=== PATIENT | female | born 1985 | race African-American/Black ===

== ENCOUNTER 2019-11-08 08:00 | Inpatient (IN) | payer OTHER ==
[2019-11-08] MEDS ORDERED: AMPICILLIN SODIUM 2 GM VIAL ONE (09:00)
[2019-11-08] MEDS ORDERED: SODIUM CHLORIDE 100 ML IVPB ONE ×2 (09:00→12:51)
[2019-11-08] MEDS: ELECTROLYTE-148 SOLN 1,000 ML IV SCH ×2 (09:15→11:00)
--- NOTE | 2019-11-08 09:39 | HP ---
Past Medical History - Primary Care Physician PCP:: Moris Hester - Admission Chief Complaint: PROM at term. Some ctx History of Present Illness: Uneventful second . GBS pos. History Source: Patient, Medical Record, Caregiver Limitations to Obtaining History: No Limitations - Past Medical History MANAGER OF BROADCAST CONTENT: No: Alzheimer's, CVA, Dementia, Migraine, Multiple Sclerosis, Peripheral Neuropathy, Parkinson's, Seizure, Syncope, TIA, Vertigo, Other Cardiovascular: No: AFIB, Aneurysm, Aortic Insufficiency, Aortic Stenosis, CAD, CHF, Deep Vein Thrombosis, HTN, Hyperlipdemia, NC, Mitral Insufficiency, Mitral Stenosis, Murmur, Pulmonary Hypertension, Other Pulmonary: No: Asthma, Bronchitis, Cancer, COPD, O2 Dependent, Pneumonia, Previously Intubated, Pulmonary Embolus, Pulmonary Fibrosis, Sleep Apnea, Other Gastrointestinal: No: Ascites, Cancer, Constipation, Crohn's Disease, Diverticulitis, Diverticulosis, Esophageal Varices, Gastritis, GERD, GI Bleed, Hemorrhoids, Hiatal Hernia, Inflamatory Bowel Disease, Irritable Bowel Disease, Pancreatitis, Peptic Ulcer Disease, Ulcerative Colitis, Other Hepatobiliary: No: Cirrhosis, Cholelithiasis, Cholecystitis, Choledocholithiasis, Hepatitis A, Hepatitis B, Hepatitis C, Other Renal/: No: Renal Failure, Renal Inusuff, BPH, Cancer, Hematuria, Hemodialysis, Neurogenic Bladder, Renal Calculi, UTI, Other Reproductive: No: Ectopic , Endometriosis, Fibroids, PID, Polycystic Ovary Syndrome, Postmenopausal, Other Heme/Onc: No: Anemia, B12 Deficiency, Bleeding Disorder, Cancer, Current Chemotherapy, Current Radiation Therapy, Hemochromatosis, Hypercoaguable State, Myeloproliferative Synd, Sickle Cell Disease, Sickle Cell Trait, Thrombocytopenia, Other Infectious Disease: No: AIDS, C-Diff, Herpes Zoster, HIV, MRSA, STD's, Tuberculosis, VREF, Other Psych: No: Addictions, Anxiety, Bipolar, Depression, Panic, Psychosis, Schizophrenia, Other Musculoskeletal: No: Bursitis, Chronic low back pain, Hemiparesis, Hemiplegia, Osteoarthritis, Paraplegia, Other Rheumatology: No: Fibromyalgia, Gout, Lupus, Rheumatoid Arthritis, Sarcoidosis, Vasculitis, Other ENT: No: Allergic Rhinitis, Sinusitis, Other Endocrine: No: Mario's Disease, Lemont's Disease, Diabetes Insipidus, Diabetes Mellitus, Hyperparathyroidism, Hyperthyroidism, Hypothyroidism, Osteopenia, SIADH, Other Dermatology: No: Basal Cell, Cellulitis, Eczema, Melanoma, Psoriasis, Squamous Cell, Other - Past Surgical History Past Surgical History: No: None, AAA Repair, AICD, Amputation, Appendectomy, Arthrosocopy, AV Fistula/Graft, Bariatric Surgery, Breast Biopsy, Bypass, CABG, Carotid Endarterectomy, Cataract Removal, Cholecystectomy, Colectomy, Colonoscopy, Colostomy, Craniotomy, , Cystectomy, Hernia Repair, Hysterectomy, Ileal Conduit, Ileosotomy, Joint Replacement, Kidney Transplant, Laminectomy, Liver Transplant, Mastectomy, Nephrectomy, Oopherectomy, Orchiectomy, Permanent Pacemaker, Prostatectomy, Splenectomy, Stent, Thoracotomy, TURP, Tonsillectomy, Tubal Ligation, Upper Endoscopy, Valve Replacement, Vasectomy, Vein Stripping/Ligation Hx Myomectomy: No Hx Transabdominal Cerclage: No Home Medications - Allergies Allergies/Adverse Reactions: Allergies Allergy/AdvReac Type Severity Reaction Status Date / Time No Known Allergies Allergy Verified 11/08/19 09:36 - Home Medications Home Medications: Ambulatory Orders NK [No Known Home Medication] 11/08/19 Review of Systems - Review of Systems Constitutional: reports: No Symptoms Eyes: reports: No Symptoms HENT: reports: No Symptoms Neck: reports: No Symptoms Cardiovascular: reports: No Symptoms Respiratory: reports: No Symptoms Gastrointestinal: reports: No Symptoms Genitourinary: reports: No Symptoms Breasts: reports: No Symptoms Reported Musculoskeletal: reports: No Symptoms Integumentary: reports: No Symptoms Neurological: reports: No Symptoms Endocrine: reports: No Symptoms Hematology/Lymphatic: reports: No Symptoms Psychiatric: reports: No Symptoms Physical Exam - Maternity Constitutional: Yes: Well Nourished, No Distress, Calm Eyes: Yes: WNL, Conjunctiva Clear, EOM Intact HENT: Yes: WNL, Atraumatic, Normocephalic Neck: Yes: WNL, Supple, Trachea Midline Cardiovascular: Yes: WNL, Regular Rate and Rhythm Breast(s): Yes: WNL - Abdominal Exam/OB Fundal Height: 38 Number of Fetuses: Single Presentation: Vertex Contractions: Yes Regularity: Irregular Intensity: Mild/Mod Monitor Mode: External Heart Rate (range): 135 Heart Rate Location: [facility] Category: I Accelerations: Uniform Decelerations: None - Vaginal Exam/OB Vaginal Bleeding: Yes Dilatation (cm): 4 Effacement (%): 50 Amniotic Membrane Status: Leaking Meconium: Light (ROM of remaining membranes) Station: -2 Problem List - Problems (1) with 39 completed weeks gestation Code(s): Z3A.39 - 39 WEEKS GESTATION OF (2) PROM (premature rupture of membranes) Code(s): O42.90 - [place] ROM, 7TH0 BETW RUPT & ONST LABR, UNSP WEEKS OF GEST (3) Uterine contractions Code(s): [id number] - Assessment/Plan Labor to continue. Pt. is doing well. Epidural discussed. GBS proph.
[2019-11-08] MEDS ORDERED: AMPICILLIN - 2 GM in SODIUM CHLORIDE 100 ML IVPB ONE (09:42)
[2019-11-08 09:44] LABS: BASO % 0.1 % (0-2.0); EOS % 0.2 % (0-4.5); HEMATOCRIT 33.3 % (32.4-45.2); HEMOGLOBIN 11.2 GM/dL (10.7-15.3); LYMPH % 37.5 % (8-40); MCH 29.4 pg (25.7-33.7); MCHC 33.6 g/dl (32.0-36.0); MEAN CELL VOLUME 87.5 fl (80-96); MONO % 6.4 % (3.8-10.2); NEUT % 55.8 % (42.8-82.8); PLATELET COUNT 412 K/MM3 (134-434); RBC 3.81 M/mm3 (3.60-5.2); RDW 14.8 % (11.6-15.6)
[2019-11-08 09:54] LABS: INR 0.99 (0.83-1.09); PROTHROMBIN TIME (PATIENT) 11.7 SEC (9.7-13.0)
[2019-11-08] MEDS ORDERED: FENTANYL/BUPIVACAINE/NS/PF - PCEA - 50 ML DISP.SYRIN EP ONE (09:55)
[2019-11-08 09:57] LABS: ACTIVATED PTT 26.4 SECONDS (25.2-36.5)
[2019-11-08] MEDS ORDERED: BUPIVACAINE HCL/PF 0.25% (2.5MG/ML) 10 ML VIAL ONE (10:00)
[2019-11-08 10:13] LABS: CALCIUM 8.9 mg/dL (8.5-10.1); CREATININE 0.5 mg/dL (0.55-1.3); POTASSIUM 4.2 mmol/L (3.5-5.1)
[2019-11-08] MEDS ORDERED: NALOXONE HCL 0.4 MG/ML VIAL IVPUSH PRN (10:27)
[2019-11-08] MEDS ORDERED: FENTANYL/BUPIVACAINE/NS/PF - PCEA - 50 ML DISP.SYRIN EP SCH (10:30)
[2019-11-08 10:56] VITALS: BMI 32.8
[2019-11-08] MEDS ORDERED: OXYTOCIN 20 UNITS in 0.9% NS 20 UNIT/1,000 ML INFUS.BAG IV ONE (11:41)
[2019-11-08] MEDS ORDERED: AMPICILLIN SODIUM 1 GM VIAL ONE (12:51)
[2019-11-08] MEDS ORDERED: AMPICILLIN - 1 GM in SODIUM CHLORIDE 100 ML IVPB SCH (13:30)
--- NOTE | 2019-11-08 14:23 | PN ---
Progress Note, Labor Vaginal Exam #2 Labor Exam Date: 11/08/19 Dilatation: 8 Effacement (%): 10 Presentation: Vertex/Position Station: -2 (Active labor. Epidural in.)
--- NOTE | 2019-11-08 14:24 | PN ---
Progress Note, Labor Vaginal Exam #3 Labor Exam Date: 11/08/19 Dilatation: 10 Presentation: Vertex/Position (Pushing.) Station: +1
--- NOTE | 2019-11-08 14:28 | PN ---
Delivery - Delivery Vaginal Delivery: No Problems Type of Anesthesia: Epidural Episiotomy/Laceration: 1st degree EBL (cc): 300 Delivery, Single - Stages of Labor Date of Delivery: 11/08/19 Time of Delivery: 13:57 Time Placenta Delivered: 14:00 Placenta: Yes: Spontaneous - Condition of Infant Roll Cleaner/Senior Safety Management Consultant Present: No Gender: Female Position: Left, OA (Nuchal cord x 2, tight.) - 1 Minute Total Score: 9 5 Minutes Total Score: 9 - Feeding Plan Initial Plan: Elected not to breastfeed exclusively throughout hospitalization Remarks - Remarks Remarks: . Baby girl, OK. Pt is very happy.
[2019-11-08] MEDS ORDERED: WITCH HAZEL 50% (TUCKS) 40 PAD/JAR PAD TP PRN (14:29)
[2019-11-08] MEDS ORDERED: BISACODYL 10 MG SUPP.RECT RC PRN (14:29)
[2019-11-08] MEDS ORDERED: BENZOCAINE 28 GM HEMORRHOIDAL OINTMENT TP PRN (14:29)
[2019-11-08] MEDS ORDERED: OXYTOCIN 20 UNITS in 0.9% NS 1000 ML INFUS.BAG IV ONE (14:29)
[2019-11-08] MEDS ORDERED: METHYLERGONOVINE MALEATE 0.2 MG/1 ML AMP IM PRN (14:29)
[2019-11-08] MEDS ORDERED: BENZOCAINE 20% 57 GM BOTTLE TP PRN (14:29)
[2019-11-08] MEDS: ACETAMINOPHEN 325 MG TABLET (FP) PO PRN (16:28)
[2019-11-08] MEDS: IBUPROFEN 600 MG TABLET (FP) PO PRN (16:29)
[2019-11-09] MEDS: ACETAMINOPHEN 325 MG TABLET (FP) PO PRN ×2 (00:42→15:42)
[2019-11-09] MEDS: IBUPROFEN 600 MG TABLET (FP) PO PRN ×2 (00:42→15:41)
[2019-11-09 08:24] LABS: BASO % 0.3 % (0-2.0); EOS % 0.4 % (0-4.5); HEMATOCRIT 32.4 % (32.4-45.2); HEMOGLOBIN 10.8 GM/dL (10.7-15.3); LYMPH % 24.5 % (8-40); MCH 29.3 pg (25.7-33.7); MCHC 33.5 g/dl (32.0-36.0); MEAN CELL VOLUME 87.4 fl (80-96); MEAN PLT VOLUME 7.1 fl (7.5-11.1); MONO % 7.1 % (3.8-10.2); NEUT % 67.7 % (42.8-82.8); PLATELET COUNT 390 K/MM3 (134-434); RDW 15.6 % (11.6-15.6); WHITE BLOOD COUNT 9.8 K/mm3 (4.0-10.0)
--- NOTE | 2019-11-09 09:09 | PN ---
Post Progress Note - Subjective Subjective: VSS Feels great. Wants to go home. Type of Delivery: Vital Signs: Vital Signs Temperature 98.0 F 11/09/19 05:19 Pulse Rate 84 11/09/19 05:19 Respiratory Rate 20 11/09/19 05:19 Blood Pressure 118/72 11/09/19 05:19 O2 Sat by Pulse Oximetry (%) 99 11/08/19 15:15 Breast Exam: Yes: Soft (Nursing.) Uterus: Yes: Fundus Firm Abdomen/GI: Yes: Abdomen soft, Passing flatus Lochia: Yes: Rubra Lochia, amount: Small Extremities: Yes: Calves non-tender Perineum: Yes: Intact Activity: Ambulating - Labs Labs: CBC WBC 9.8 K/mm3 (4.0-10.0) 11/09/19 07:15 RBC 3.70 M/mm3 (3.60-5.2) 11/09/19 07:15 Hgb 10.8 GM/dL (10.7-15.3) 11/09/19 07:15 Hct 32.4 % (32.4-45.2) 11/09/19 07:15 MCV 87.4 fl (80-96) 11/09/19 07:15 MCH 29.3 pg (25.7-33.7) 11/09/19 07:15 MCHC 33.5 g/dl (32.0-36.0) 11/09/19 07:15 RDW 15.6 % (11.6-15.6) 11/09/19 07:15 Plt Count 390 K/MM3 (134-434) 11/09/19 07:15 MPV 7.1 fl (7.5-11.1) L 11/09/19 07:15 Absolute Neuts (auto) 6.7 K/mm3 (1.5-8.0) 11/09/19 07:15 Neutrophils % 67.7 % (42.8-82.8) D 11/09/19 07:15 Lymphocytes % 24.5 % (8-40) D 11/09/19 07:15 Monocytes % 7.1 % (3.8-10.2) 11/09/19 07:15 Eosinophils % 0.4 % (0-4.5) D 11/09/19 07:15 Basophils % 0.3 % (0-2.0) 11/09/19 07:15 Nucleated RBC % 0 % (0-0) 11/09/19 07:15 Problem List - Problems (1) with 39 completed weeks gestation Code(s): Z3A.39 - 39 WEEKS GESTATION OF (2) PROM (premature rupture of membranes) Code(s): O42.90 - [place] ROM, 7TH0 BETW RUPT & ONST LABR, UNSP WEEKS OF GEST (3) Uterine contractions Code(s): WQG9877 - (4) Normal course Code(s): Z39.2 - ENCOUNTER FOR ROUTINE FOLLOW-UP Assessment/Plan Doing well. Instructed. Discharge.
--- NOTE | 2019-11-09 09:10 | DS ---
Physical Exam-NURSE NAVIGATOR Vital Signs: Vital Signs Temperature 98.0 F 11/09/19 05:19 Pulse Rate 84 11/09/19 05:19 Respiratory Rate 20 11/09/19 05:19 Blood Pressure 118/72 11/09/19 05:19 O2 Sat by Pulse Oximetry (%) 99 11/08/19 15:15 Constitutional: Yes: Well Nourished, No Distress, Calm Eyes: Yes: WNL, Conjunctiva Clear, EOM Intact HENT: Yes: WNL, Atraumatic, Normocephalic Neck: Yes: WNL, Supple, Trachea Midline Cardiovascular: Yes: WNL, Regular Rate and Rhythm Respiratory: Yes: WNL, Regular, CTA Bilaterally Gastrointestinal: Yes: WNL ...Rectal Exam: Yes: WNL Renal/: Yes: WNL External Genitalia: Yes: Normal Internal Exam Deferred: Yes Uterus: Yes: Firm ....Post : Yes: Uterus firm, Uterus non-tender Breast(s): Yes: WNL Musculoskeletal: Yes: WNL Extremities: Yes: WNL Integumentary: Yes: WNL Neurological: Yes: WNL, Alert, Oriented ...Motor Strength: WNL Psychiatric: Yes: WNL, Alert, Oriented Labs: CBC, BMP 11/09/19 07:15 11/08/19 09:28 Delivery - Delivery Vaginal Delivery: No Problems Type of Anesthesia: Epidural Episiotomy/Laceration: 1st degree EBL (cc): 300 Delivery, Single - Stages of Labor Date 1st Stage Initiatied: 11/08/19 Time 1st Stage Initiated: 03:00 Date 2nd Stage Initiated: 11/08/19 Time 2nd Stage Initiated: 13:30 Date of Delivery: 11/08/19 Time of Delivery: 13:57 Time Placenta Delivered: 14:00 Placenta: Yes: Spontaneous - Condition of Infant Soaping Department Supervisor/Pump Press Operator Present: No Infant Gender: Female Weight: 6 lb 6 oz Position: Left, OA Total Hours ROM (Hrs/Mins): 11/30 - 1 Minute Total Score: 9 5 Minutes Total Score: 9 - [place] Feeding Plan Initial Plan: Elected not to breastfeed exclusively throughout hospitalization Remarks - Remarks Remarks: Happy. Discharge Summary Problems reviewed: Yes Reason For Visit: ADMISSION OF LABOR Current Active Problems Normal course (Acute) PROM (premature rupture of membranes) (Acute) with 39 completed weeks gestation (Acute) Uterine contractions (Acute) Hospital Course: Uneventful. Health Concerns: None. Condition: Good - Instructions Diet, Activity, Other Instructions: Physical activity Resume your normal everyday activity as tolerated no heavy lifting or exercise until seen by your surgeon. You may walk unlimited ryley of and climb stairs. You may resume driving the car when you feel safe and comfortable behind the wheel. No sexual activity as instructed. Diet There are no dietary restrictions. Eat healthy, high-fiber foods. Drink 6 to 8 glasses of liquid each day. This will assist in keeping your bowels are regular. Pain management You may take Tylenol or acetaminophen or Ibuprofen (for example, Motrin, Advil etc.) from my pain prescription medication is ordered should be taken as prescribed for moderate to severe pain. Call MD for any of the following: Severe pain not relieved by medication Fever of 101 or higher Excessive bleeding or drainage on dressing Inability to urinate Disposition: HOME - Home Medications Comprehensive Discharge Medication List: Ambulatory Orders NK [No Known Home Medication] 11/08/19
[2019-11-09 09:29] VITALS: BP 124/79; PULSE 93; TEMP 99
--- NOTE | 2019-11-09 16:03 | PN ---
Post Progress Note Post Day: 1 Type of Delivery: Vital Signs: Vital Signs Temperature 99 F 11/09/19 09:28 Pulse Rate 93 H 11/09/19 09:28 Respiratory Rate 20 11/09/19 09:28 Blood Pressure 124/79 11/09/19 09:28 O2 Sat by Pulse Oximetry (%) 99 11/08/19 15:15 Breast Exam: Yes: Soft Uterus: Yes: Fundus Firm Incision: Yes: Dressing dry and intact Abdomen/GI: Yes: Abdomen soft, Tolerating PO Lochia: Yes: Serosa Lochia, amount: Small Extremities: Yes: Calves non-tender Perineum: Yes: Intact Activity: Ambulating (dc pt home today) - Labs Labs: CBC WBC 9.8 K/mm3 (4.0-10.0) 11/09/19 07:15 RBC 3.70 M/mm3 (3.60-5.2) 11/09/19 07:15 Hgb 10.8 GM/dL (10.7-15.3) 11/09/19 07:15 Hct 32.4 % (32.4-45.2) 11/09/19 07:15 MCV 87.4 fl (80-96) 11/09/19 07:15 MCH 29.3 pg (25.7-33.7) 11/09/19 07:15 MCHC 33.5 g/dl (32.0-36.0) 11/09/19 07:15 RDW 15.6 % (11.6-15.6) 11/09/19 07:15 Plt Count 390 K/MM3 (134-434) 11/09/19 07:15 MPV 7.1 fl (7.5-11.1) L 11/09/19 07:15 Absolute Neuts (auto) 6.7 K/mm3 (1.5-8.0) 11/09/19 07:15 Neutrophils % 67.7 % (42.8-82.8) D 11/09/19 07:15 Lymphocytes % 24.5 % (8-40) D 11/09/19 07:15 Monocytes % 7.1 % (3.8-10.2) 11/09/19 07:15 Eosinophils % 0.4 % (0-4.5) D 11/09/19 07:15 Basophils % 0.3 % (0-2.0) 11/09/19 07:15 Nucleated RBC % 0 % (0-0) 11/09/19 07:15
[2019-11-09] MEDS ORDERED: SENNOSIDES/DOCUSATE COMBO (SENNA PLUS) TABLET (UD) PO PRN (22:00)
== END 2019-11-09 18:30 | disposition home or self-care (01) | DRG 807 ==
LOC: JLDR 08:00 → J3W 16:11
PROVIDERS: ADMIT Obstetrics & Gynecology; ATTEND Obstetrics & Gynecology
PROC: 10E0XZZ Delivery of Products of Conception, External Approach (ICD-10-PCS; principal; 2019-11-08)
DX: O42.02 Full-term premature rupture of membranes, onset of labor within 24 hours of rupture (principal); Z37.0 Single live birth; O70.0 First degree perineal laceration during delivery; O99.824 Streptococcus B carrier state complicating childbirth; O69.1XX0 Labor and delivery complicated by cord around neck, with compression, not applicable or unspecified; Z3A.39 39 weeks gestation of pregnancy
CPT/HCPCS: 36415; 59409; 80048; 85025; 85610; 85730; 86780; 86850; 86900; 86901; 87389; U0003

== ENCOUNTER 2020-12-02 04:31 | Day surgery (SDC) | payer OTHER ==
[2020-11-27 09:56] VITALS: BMI 28.7
[2020-12-02] MEDS ORDERED: ROCURONIUM BROMIDE 50 MG/5 ML SYRINGE ONE (07:56)
[2020-12-02] MEDS ORDERED: PROPOFOL 20 ML ONE (07:56)
[2020-12-02] MEDS ORDERED: MIDAZOLAM HCL 2 MG/2 ML SINGLE DOSE VIAL ONE (07:56)
[2020-12-02] MEDS ORDERED: LIDOCAINE HCL/PF 2% SDV 5ML VIAL ONE (07:57)
[2020-12-02] MEDS ORDERED: ceFAZolin SODIUM 1 GM VIAL ONE (07:57)
[2020-12-02] MEDS ORDERED: KETOROLAC TROMETHAMINE 30 MG/1 ML VIAL ONE (07:57)
[2020-12-02] MEDS ORDERED: DEXAMETHASONE SOD PHOSPHATE 4 MG/1 ML VIAL ONE (07:57)
[2020-12-02] MEDS ORDERED: ceFAZolin 2 GRAM PREMIX BAG IVPB ONE (08:25)
[2020-12-02] MEDS ORDERED: NEOSTIGMINE METHYLSULFATE 0.5 MG/ML - 10 ML MDV ONE (09:08)
[2020-12-02] MEDS ORDERED: ACETAMINOPHEN 325 MG TABLET (FP) PO PRN (09:18)
[2020-12-02] MEDS ORDERED: IBUPROFEN 600 MG TABLET (FP) PO PRN (09:18)
[2020-12-02] MEDS ORDERED: IBUPROFEN 800 MG/8 ML IJ IVPB PRN (09:18)
[2020-12-02] MEDS ORDERED: LACTATED RINGERS SOLUTION 1,000 ML IV SCH (09:30)
[2020-12-02] MEDS ORDERED: ACETAMINOPHEN 500 MG TABLET (FP) PO PRN (09:53)
[2020-12-02 11:54] VITALS: BP 130/74; PULSE 82; TEMP 98
== END 2020-12-02 11:55 | disposition home or self-care (01) ==
LOC: JASU-SURG 04:31
PROVIDERS: ATTEND Obstetrics & Gynecology
PROC: 0U574ZZ Destruction of Bilateral Fallopian Tubes, Percutaneous Endoscopic Approach (ICD-10-PCS; principal; 2020-12-02 08:00)
DX: Z30.2 Encounter for sterilization (principal)
CPT/HCPCS: 81025; 94760